=== PATIENT | male | born 1965 | race Two or more races ===

== ENCOUNTER 2016-09-19 14:43 | Emergency (ER) | payer OTHER ==
[~2016-09-19] VITALS: Ht 165.1 cm; Wt 75.7 kg
[2016-09-19] VITALS (14 sets, daily range): BP systolic 111–172; BP diastolic 61–98
[2016-09-19] MEDS ORDERED: Norco 5mg/325mg tab PO ONE (15:15)
[2016-09-19] MEDS ORDERED: Etomidate 40mg/20ml Inj IV ONE ×3 (16:26→17:15)
--- NOTE | 2016-09-19 16:32 | Diagnostic Imaging Report ---
Indications: Fall, left wrist injury and pain Technique: 3 views left wrist. Findings: Comparison: None No fracture, dislocation, joint space widening , surrounding soft tissue swelling/foreign body/gas, or other acute changes are identified. IMPRESSION: No evidence of acute injury to the left wrist.
[2016-09-19] MEDS ORDERED: Propofol 10mg/ml 20ml IV ONE ×2 (17:15→18:00)
[2016-09-19] MEDS ORDERED: IBUPROFEN600 MG ORAL (17:53)
[2016-09-19] MEDS ORDERED: NORCO 5-325 TA1 EACH ORAL (17:53)
--- NOTE | 2016-09-19 18:38 | Emergency Room Report ---
History of Present Illness General Chief Complaint: Upper Extremity Injury Source: Patient Present Illness HPI 51-year-old male presents to ED with pain to the left arm. States he fell off a ladder today at work. Landing on his left side. Denies hitting his head or LOC. Patient is here complaining of left shoulder pain and left arm pain. Unable to move his arm. Pain is a 10 out of 10, nonradiating, sharp. No other aggravating or relieving factors. Denies any other associated symptoms Allergies: Coded Allergies: No Known Allergies (Unverified , 09/19/16) Patient History Past Medical History: none Past Surgical History: none Pertinent Family History: none Social History: Denies: alcohol use, drug use, smoking Reviewed Nursing Documentation: PMH: Agreed, PSxH: Agreed Nursing Documentation-PMH Past Medical History: No History, Except For Hx Hypertension: No - HIGH CHOLESTEROL Review of Systems All Other Systems: negative except mentioned in HPI Physical Exam Vital Signs Date Time Temp Pulse Resp B/P Pulse Ox O2 Delivery O2 Flow Rate FiO2 09/19/16 14:53 98.1 62 20 161/86 100 Room Air 09/19/16 16:48 2.0 Sp02 EP Interpretation: reviewed, normal General Appearance: alert, GCS 15, non-toxic, mild distress Head: normocephalic Eyes: bilateral eye PERRL, bilateral eye normal inspection ENT: normal ENT inspection Neck: full range of motion, supple/symm/no masses Respiratory: normal inspection Cardiovascular #1: normal inspection Gastrointestinal: normal inspection Rectal: deferred Genitourinary: no CVA tenderness Musculoskeletal: normal inspection, tender - Left shoulder deformity. Left elbow pain. L WRIST PAIN Neurologic: alert, oriented x3, responsive, motor strength/tone normal, sensory intact, speech normal Psychiatric: normal inspection Skin: normal inspection Lymphatic: normal inspection Procedures Splinting Splinting : Consent: Verbal Pre-Made Type: shoulder immobilizer Pre-Proc Neuro Vasc Exam: normal Post-Proc Neuro Vasc Exam: normal Patient Tolerated: Well Complications: None Joint Reduction Joint Reduction : Consent: Written Joint Reduction Site: shoulder (L) Procedural Sedation: Yes Reduction Attempts: Other - 3 times Pre-Procedure NV Exam: Yes Post-Procedure NV Exam: Yes Post Joint Reduction Film: joint reduced Patient Tolerated: Well Complications: None Procedural Sedation Consent: Written Pre-Sedation Assessment: Eval. Immed. Prior to Sed, Pre-proc Edu. done, Plan for Sedation Discuss Airway Assessment (Malampati): I Heart: normal Lungs: normal Abdomen: normal Extremities: normal Procedures/Plans: Closed Reduction Plan for Moderate Sedation: Propofol, Other - etomidate ASA Score: I Start Time: 16:48 End Time: 17:35 Total Time: 7 Communication: No Apparent Limitation Mental Status: Awake Respiration: Unlabored Skin Condition: WNL Abdomen: WNL Nausea: NO Vomiting: NO Medical Decision Making Diagnostic Impression: Primary Impression: Shoulder dislocation Qualified Codes: S43.005A - Unspecified dislocation of left shoulder joint, initial encounter ER Course Hospital Course 51-year-old male presents ED with left arm pain status post fall from ladder Differential diagnoses include: Fracture, dislocation, sprain, contusion Clinical course Patient placed on stretcher. After initial history and physical I ordered pain medications and x-rays of left shoulder,, left humerus X-ray show left shoulder dislocation, no other fractures Procedural sedation performed using etomidate. Respiratory therapist at bedside. Patient stable vitals on monitoring coordinator. Despite repeat dosing of etomidate we were unable to reduce the shoulder initially. Patient never properly sedated under etomidate Repeated procedural sedation using propofol After multiple attempts, Shoulder reduced without complication. Placed in shoulder immobilizer. Repeat shoulder x-ray shows adequate reduction. Patient states he feels better. Diagnosis - shoulder dislocation Stable and discharged to home with prescription for Motrin, [place]. Followup with PMD. Return to ED if symptoms recur or worsen Other X-Ray Diagnostic Results X-Ray ordered: Left shoulder, left humerus, left wrist # of Views/Limited Vs Complete: 3 View EP Interpretation: Yes Interpretation: no fractures, no soft tissue swelling, other - left shoulder dislocation. Indication: Pain Impression: Other - left shoulder dislocation Interpreting ER Provider: Abdiaziz Hardin MD Last Vital Signs Date Time Temp Pulse Resp B/P Pulse Ox O2 Delivery O2 Flow Rate FiO2 09/19/16 18:02 20 09/19/16 17:35 62 111/79 99 Nasal Cannula 2.0 09/19/16 17:06 97.9 Status: improved Disposition: HOME, SELF-CARE Condition: Stable Scripts Hydrocodone Bit/Acetaminophen 5-325* (NORCO 5-325*) 1 Each Tablet 1 TAB ORAL Q6H Y for For Pain, #10 TAB 0 Refills Prov: ABDIAZIZ HARDIN M.D. 09/19/16 Ibuprofen* (MOTRIN*) 600 Mg Tablet 600 MG ORAL Q8H Y for For Pain, #30 TAB 0 Refills Prov: ABDIAZIZ HARDIN M.D. 09/19/16 Departure Forms: Return to Work Return to Work Date: Sep 21, 2016 Work Restrictions: No Heavy Lifting Patient Instructions: Shoulder Dislocation, [id number] ABDIAZIZ HARDIN M.D. Sep 19, 2016 18:38
--- NOTE | 2016-09-20 09:05 | Diagnostic Imaging Report ---
Indications: Fall, left elbow injury and pain Technique: 3 views left elbow. Findings: Comparison: None Poor positioning of lateral view limits evaluation. Fat pad displacement not excludable. No fracture, dislocation, joint space widening , surrounding soft tissue swelling/foreign body/gas, or other acute changes are identified. IMPRESSION: Limited evaluation due to technical factors described-cannot rule out joint effusion and therefore radiographically occult fracture .
--- NOTE | 2016-09-20 09:05 | Diagnostic Imaging Report ---
Indications: Fall, left arm injury and pain Technique: 2 views left arm. Findings: Comparison: None Anterior dislocation of left humerus again noted. No fracture, additional dislocation, joint space widening , surrounding soft tissue swelling/foreign body/gas, or other acute changes are identified. IMPRESSION: Anterior dislocation left humerus .
--- NOTE | 2016-09-20 09:06 | Diagnostic Imaging Report ---
Indications: Fall, left shoulder injury and pain, limited range of motion Technique: 3 views left shoulder Findings: Comparison: None Left humerus has been dislocated from the glenoid fossa, residing inferior to the scapular coracoid process. No fracture or other deformity identified. IMPRESSION: Anterior dislocation of left humerus
--- NOTE | 2016-09-20 10:23 | Diagnostic Imaging Report ---
Indication: PAIN postreduction Technique: One view of the left shoulder Comparison: One hour earlier Findings: There is an anterior dislocation of the left shoulder. Questionable lucency of the posterior inferior glenoid, more likely an artifact of bony overlap no definite fracture otherwise, although evaluation for such is limited given the availability of only a single view Impression: Persistent left shoulder dislocation despite attempted reduction
--- NOTE | 2016-09-20 10:29 | Diagnostic Imaging Report ---
Indication: PAIN Technique: 3 views of the left shoulder Comparison: One half hour earlier Findings: Interim reduction of previously dislocated left humeral head. No definite bony abnormality. Joint spaces are preserved Impression:Satisfactory reduction of previous left shoulder dislocation
== END 2016-09-19 18:46 | disposition home or self-care (01) ==
LOC: EMR 16:30
DX: S43.015A Anterior dislocation of left humerus, initial encounter (principal); W11.XXXA Fall on and from ladder, initial encounter; Y92.69 Other specified industrial and construction area as the place of occurrence of the external cause; Y99.0 Civilian activity done for income or pay
CPT/HCPCS: 23655; 29240; 73020; 73030; 73060; 73080; 73110; 96374; 96375; 99285; J2704